=== PATIENT | male | born 1990 | race Caucasian/White ===

== ENCOUNTER 2017-11-24 11:39 | Outpatient (CLI) | payer BC ==
--- NOTE | 2017-11-24 12:27 | RAD ---
LUMBAR SPINE FIVE VIEWS: History: Back pain. FINDINGS: Lateral views were obtained in neutral, flexion, and extension positions. Lumbar vertebrae maintain normal height and alignment. Disc spaces are preserved. No evidence of spon dylolisthesis or spondylosis. Alighnment appears normally preserved with flexion and extension. IMPRESSION: Unremarkable lumbar spine. POS: [facility]
--- NOTE | 2017-11-24 12:45 | RAD ---
THORACIC SPINE: Indication: Back pain. FINDINGS: Thoracic vertebrae maintain normal height and alignment. Disc spaces are normally maintained. No lyti c or blastic process. No compression deformity. IMPRESSION: Unremarkable thoracic spine. POS: [facility]
== END 2017-11-24 11:40 | disposition home or self-care (01) ==
LOC: MADRAD 11:39
PROVIDERS: ATTEND Orthopaedic Surgery Sports Medicine
DX: M54.9 Dorsalgia, unspecified (principal); G89.29 Other chronic pain
CPT/HCPCS: 72070; 72110

== ENCOUNTER 2018-12-24 11:51 | Emergency (ER) | payer BC ==
[2018-12-24] MEDS ORDERED: Dexamethasone 4 MG TAB ONE (12:14)
== END 2018-12-24 13:12 | disposition home or self-care (01) ==
LOC: MADERS 11:51
DX: T78.40XA Allergy, unspecified, initial encounter (principal)
CPT/HCPCS: 99282; J8540